=== PATIENT | male | born 1985 | race Caucasian/White ===

== ENCOUNTER 2023-09-08 15:27 | Emergency (ER) | payer BC ==
[2023-09-08 16:30] LABS: Influenza A by NAA Not Detected (NotDetected); Influenza B by NAA Not Detected (NotDetected); SARS-CoV-2 NAA Rapid Test DETECTED (NotDetected)
[2023-09-08] MEDS ORDERED: Acetaminophen 500 MG TAB ONE (17:35)
[2023-09-08] MEDS ORDERED: Ketorolac Tromethamine 30 MG (1 mL) VIAL ONE (17:35)
[2023-09-08 18:22] LABS: #Basophils 0.03 10x3/uL (0.0-0.2); %Basophils 0.4 % (0.0-1.0); %Eosinophils 1.8 % (0.0-10.0); %Lymphocytes 6.4 % (21.0-51.0); %Monocytes 7.6 % (0.0-10.0); %Neutrophils 83.4 % (42.0-75.0); Hematocrit 38.8 % (42.0-52.0); Hemoglobin 13.4 g/dL (14.0-18.0); Mean Corpuscular HGB CONC 34.5 g/dL (32.0-36.0); Mean Corpuscular Hemoglobin 29.9 pg (27.0-31.0); Mean Corpuscular Volume 86.6 fL (78.0-98.0); Mean Platelet Volume 9.1 fL (7.4-10.4); Platelet Count 274 10x3/uL (130-400); RBC Distribution Width 11.6 % (11.5-14.5); Red Blood Cell (RBC) Count 4.48 mill/uL (4.70-6.10)
[2023-09-08 18:37] LABS: ALT (SGPT) 25 U/L (8-55); AST (SGOT) 29 U/L (5-34); Albumin 4.3 g/dL (3.5-5.0); Alkaline Phosphatase 55 U/L (40-110); Anion Gap 17 mmol/L (10-20); BUN (Urea Nitrogen) 15 mg/dL (8.9-20.6); Bilirubin, Total 0.9 mg/dL (0.2-1.2); Calc. Creatinine Clearance 0 mL/min (70-130); Calcium 9.7 mg/dL (7.8-10.44); Carbon Dioxide 23 mmol/L (22-29); Chloride 102 mmol/L (98-107); Estimated GFR 98; Globulin 3.3 g/dL (2.4-3.5); Glucose 92 mg/dL (70-105); Potassium 3.9 mmol/L (3.5-5.1); Protein, Total 7.6 g/dL (6.0-8.3); Sodium 138 mmol/L (136-145)
== END 2023-09-08 20:21 | disposition home or self-care (01) ==
LOC: ERS 15:27
DX: U07.1 COVID-19 (principal)
CPT/HCPCS: 71045; 80053; 85025; 96360; 96361; 96372; J1885